=== PATIENT | male | born 1935 | race African-American/Black ===

== ENCOUNTER 2025-02-03 13:52 | Emergency (ER) | payer OTHER ==
[~2025-02-03] VITALS: Ht 175.3 cm; Wt 105.0 kg
[2025-02-03 13:57] VITALS: O2SAT 99
[2025-02-03 14:10] VITALS: BP 140/79; PULSE 88; RESP 18; TEMP 36.8; O2SAT 99
[2025-02-03 15:09] LABS: BASOPHILS % 0.4 % (0.0-2.0); EOSINOPHILS % 1.1 % (0.0-5.0); HEMATOCRIT. 36.8 % (42.0-52.0); HEMOGLOBIN. 12.5 g/dL (14.0-18.0); LYMPHOCYTES % 19.2 % (20.0-50.0); MEAN PLATELET VOLUME 8.6 fl (7.4-10.4); MONOCYTES % 9.2 % (2.0-8.0); NEUTROPHILS % 70.1 % (40.0-76.0); PLATELET 217 x1000/uL (130-400); RED BLOOD CELL COUNT 4.28 mill/uL (4.7-6.1); RED CELL DISTRIBUTION WIDTH 15.2 % (11.6-14.6)
[2025-02-03] MEDS: SODIUM CHLORIDE 0.9% 1,000 ML IV ONE (15:13)
[2025-02-03 15:25] LABS: CREATININE 1.3 mg/dL (0.6-1.3)
[2025-02-03 15:26] LABS: PROTEIN TOTAL 7.1 g/dL (6.0-8.3); TROPONIN I HIGH SENSITIVITY 14 ng/L (3.0-53); UREA NITROGEN BLOOD 21 mg/dL (9-23)
[2025-02-03 15:28] LABS: ASPARTATE AMINOTRANSFERASE 19 IU/L (<34); BILIRUBIN DIRECT 0.3 mg/dL (<=3.0); BILIRUBIN TOTAL 0.8 mg/dL (0.1-1.0)
[2025-02-03 17:22] LABS: CLARITY URINE CLEAR (CLEAR); COLOR URINE YELLOW (YELLOW); GLUCOSE URINE NEGATIVE (NEGATIVE); KETONES URINE NEGATIVE (NEGATIVE); LEUKOCYTE ESTERASE URINE NEGATIVE (NEGATIVE); NITRITE URINE NEGATIVE (NEGATIVE); OCCULT BLOOD URINE TRACE (NEGATIVE); PH URINE 6.5 (4.5-8.0); PROTEIN URINE NEGATIVE (NEGATIVE); SPECIFIC GRAVITY URINE 1.009 (1.005-1.030); UROBILINOGEN URINE 0.2 E.U./dL (0.2-1.0)
[2025-02-03 17:58] LABS: WBC URINE 0-2 /hpf (0-2)
[2025-02-03 17:59] LABS: BACTERIA URINE NONE SEEN; RBC URINE NONE SEEN /hpf (0-2); SQUAMOUS EPITHELIAL CELL URINE RARE /lpf (RARE/1+)
[2025-02-03] MEDS ORDERED: IOHEXOL-350 100 ML BOTTLE ONE (23:41)
== END 2025-02-03 17:43 | disposition left against medical advice (07) ==
LOC: EDBD 13:52 → ER 13:52 → EDBEDREQTM 17:05 → EDBEDREQ 17:05 → ER 17:43 → CMPBEDREQ 22:00
DX: R55 Syncope and collapse (principal); E86.0 Dehydration; Z79.899 Other long term (current) drug therapy; Z98.890 Other specified postprocedural states
CPT/HCPCS: 80076; 80048; 81003; 83880; 83735; 85025; 85379; 84484; 36415; 71045; 71275; 93005; 96360; 99285; Q9967; J7030; Z7610